=== PATIENT | male | born 1960 ===

== ENCOUNTER 2017-01-03 11:35 | Day surgery (SDC) | payer MEDICARE ==
[2017-01-03 12:29] VITALS: BMI 27.2
[2017-01-03] MEDS ORDERED: Ciprofloxacin 400mg/200ml D5W 400 MG/200 ML BAG IVPB ONE (12:57)
[2017-01-03] MEDS ORDERED: Lidocaine 2% Jelly (Uro-Jet) ONE (12:58)
[2017-01-03] MEDS ORDERED: Iohexol 240 (50 ml) ONE (12:58)
[2017-01-03 13:26] LABS: PROTHROMBIN TIME 11.6 SECONDS (9.7-12.2)
[2017-01-03] MEDS ORDERED: Lactated Ringer's 1,000 ML IV ONE (13:40)
[2017-01-03] MEDS ORDERED: Midazolam 2 MG/2 ML VIAL ONE (13:45)
[2017-01-03] MEDS ORDERED: Propofol 10 mg/ml Inj (20 ML) ONE (13:48)
[2017-01-03 15:11] VITALS: O2SAT 100
[2017-01-03 15:17] VITALS: BP 120/87; PULSE 64; RESP 12; TEMP 98.4
--- NOTE | 2017-01-05 09:45 | RAD ---
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 A 4 mm left hemipelvic calcification noted. Cystoscopic endoscope in place. Bladder opacification without gross filling defect. Mild bladder distention. Right collecting system opacification showed 2 right ureteral small filling defects - probable air bubbles - at the L4-5 level. Otherwise no filling defects or irregular collecting system narrowing suggested. No dilatation suggested Left opacified collecting system remarkable IMPRESSION: No suspicious filling defects. No dilatation.
== END 2017-01-03 17:38 | disposition home or self-care (01) ==
LOC: C.SDS 11:35
PROVIDERS: ATTEND Urology
DX: N35.9 Urethral stricture, unspecified (principal); N40.1 Benign prostatic hyperplasia with lower urinary tract symptoms; N41.9 Inflammatory disease of prostate, unspecified; R31.29 Other microscopic hematuria; I10 Essential (primary) hypertension; E78.5 Hyperlipidemia, unspecified; Z95.2 Presence of prosthetic heart valve; Z79.01 Long term (current) use of anticoagulants; Z86.79 Personal history of other diseases of the circulatory system; Z79.899 Other long term (current) drug therapy
CPT/HCPCS: 36415; 52281; 74420; 85610; 85730; C1758; J0744; J7120; Q9966